=== PATIENT | female | born 1960 | race Caucasian/White ===

== ENCOUNTER 2016-12-18 16:45 | Emergency (ER) | payer OTHER ==
[2016-12-18 22:58] LABS: Bacteria/HPF 2+ HPF (None Seen); Bilirubin Negative (Negative); Blood, Urine Large (Negative); Clarity Cloudy (Clear); Glucose, Urine (Dipstick) Negative (Negative); Leukocyte Large (Negative); Nitrite Positive (Negative); Protein, Urine (Dipstick) 100 mg/dL (Neg-Trace); Squamous Epithelial 0-3 HPF (0-3); Urobilinogen > or = 8.0 mg/dL (0.2-1.0); pH, Urine 7.5 (5.0-9.0)
[2016-12-18 22:59] LABS: #Basophils 0.1 thou/uL (0.0-0.2); #Eosinphils 0.1 thou/uL (0.0-0.7); #Lymphocytes 1.1 thou/uL (1.20-3.40); #Monocytes 0.7 thou/uL (0.11-0.59); #Neutrophils 9.5 thou/uL (1.40-6.50); %Basophils 0.6 % (0.0-1.0); %Eosinophils 0.5 % (0.0-10.0); %Lymphocytes 9.7 % (21.0-51.0); %Monocytes 5.8 % (0.0-10.0); %Neutrophils 83.3 % (42.0-75.0); Hemoglobin 11.8 g/dL (12.0-16.0); Mean Corpuscular HGB CONC 32.8 g/dL (32.0-36.0); Mean Corpuscular Hemoglobin 28.6 pg (27.0-31.0); Mean Corpuscular Volume 87.2 fl (81.0-99.0); Mean Platelet Volume 13.2 fL (7.4-10.4); Platelet Count 130 thou/uL (130-400); RBC Distribution Width 12.1 % (11.5-14.5); Red Blood Cell (RBC) Count 4.14 mill/uL (4.20-5.40); White Blood Cell (WBC) Count 11.4 thou/uL (4.8-10.8)
[2016-12-18 23:00] LABS: ALT (SGPT) 10 U/L (8-55); AST (SGOT) 10 U/L (5-34); Albumin 3.4 g/dL (3.5-5.0); Alkaline Phosphatase 73 U/L (40-150); Anion Gap 14 mmol/L (10-20); BUN (Urea Nitrogen) 13 mg/dL (9.8-20.1); Bilirubin, Total 0.3 mg/dL (0.2-1.2); Calc. Creatinine Clearance 0 mL/min (70-130); Calcium 8.5 mg/dL (7.8-10.44); Carbon Dioxide 26 mmol/L (22-29); Chloride 102 mmol/L (98-107); Estimated GFR-MDRD 53; Globulin 2.1 g/dL (2.4-3.5); Glucose 107 mg/dL (70-105); Lipase 22 U/L (8-78); MDiff Complete? YES; Manual Diff?? NO; Potassium 3.9 mmol/L (3.5-5.1); Protein, Total 5.5 g/dL (6.0-8.3); Sodium 138 mmol/L (136-145)
--- NOTE | 2016-12-19 07:40 | CT ---
CT ABDOMEN AND PELVIS WITHOUT IV CONTRAST: DATE: 12/18/16. HISTORY: Abdominal pain. FINDINGS: This examination was performed at 1800 hours but is not being submitted for interpretation until 210 8 hours. FINDINGS: Calcified granuloma is seen at the right lung base. There is minimal atelectasis present at each shelley ng base. Post cholecystectomy changes are seen. No renal or ureteral calculi are seen bilaterally. There is no hydronephrosis. Urinary bladder is incompletely distended, but the mcgill of the urinary bladder do appear mildly thi ckened, which is probably related to incomplete distention as opposed to cystitis, but urinalysis is suggested for further evaluation. A normal-caliber retrocecal appendix is seen. The liver, spleen, pancreas, and bilateral adrenal gl ands demonstrate a grossly normal nonenhanced CT appearance. Vascular calcifications are seen in the abdominal aorta and involving the iliac arteries. No dilated loops of small bowel are seen. IMPRESSION: 1. No renal or ureteral calculus is seen bilaterally. There is no hydronephrosis. 2. Urinary bladder is incompletely distended. The mcgill of the urinary bladder appear thickened, b ut this is probably related to the nondistended nature of the urinary bladder. However, cystitis co uld not be entirely excluded and correlation with urinalysis is suggested. No perivesicular inflamm atory changes are seen. 3. No CT evidence of appendicitis. 4. Post cholecystectomy changes. POS: NATHAN
== END 2016-12-18 18:35 | disposition home or self-care (01) ==
LOC: NAV ERS 16:49
DX: N12 Tubulo-interstitial nephritis, not specified as acute or chronic (principal)
CPT/HCPCS: 36415; 74176; 80053; 81003; 81015; 83690; 85025